=== PATIENT | female | born 1985 | race Caucasian/White ===

== ENCOUNTER 2017-10-05 07:50 | Emergency (ER) | payer OTHER, MEDICAID ==
[~2017-10-05] VITALS: Ht 167.6 cm; Wt 87.0 kg
[~2017-10-05 07:50] MED LIST: BUPR100T PO; CLIN1CAP6 PO; HYDR12.56 PO; IBUP800 PO; LABE100T2 PO; NORE1TAB57 PO; SERT-129 PO
[2017-10-05 07:54] VITALS: BP 130/82; PULSE 121; RESP 18; TEMP 99.2; O2SAT 98
[2017-10-05 07:58] VITALS: PULSE 111; TEMP 99.7
[2017-10-05] MEDS ORDERED: KETOROLAC TROMETHAMINE 60 MG/2 ML (IM) VIAL IM ONE (08:15)
[2017-10-05] MEDS ORDERED: DEXAMETHASONE SOD PHOS 4 MG/ML VIAL IM ONE (08:15)
[2017-10-05] MEDS ORDERED: NORE1TAB57 PO (08:18)
[2017-10-05] MEDS ORDERED: HYDR12.57 PO (08:18)
[2017-10-05] MEDS ORDERED: LABE100T2 PO (08:18)
[2017-10-05] MEDS ORDERED: SERT-129 PO (08:18)
[2017-10-05] MEDS ORDERED: BUPR100T4 PO (08:18)
[2017-10-05] MEDS ORDERED: AZIT250T3 PO (08:55)
[2017-10-05] MEDS ORDERED: NAPR500T2 PO (08:55)
--- NOTE | 2017-10-05 08:55 | PD ---
HPI Chief Complaint: Cold / Flu Symptoms Time Seen by Provider: 08:04 Travel History International Travel<30 days: No Contact w/Intl Traveler<30days: No Traveled to known affect area: No History of Present Illness HPI This is a 32-year-old female who presents to the emergency department with 2 days of severe sore throat, constant, associated with difficulty swallowing, subjective fevers and body aches. She also has some chest discomfort with deep breaths. Her son was sick with similar symptoms but then got better. PFSH Past Medical History Anxiety: Yes Depression: Yes Diminished Hearing: No Hypertension: Yes Respiratory: Yes (PNEUMONIA IN PAST) Immunizations Current: Yes Influenza Vaccination: No ?: Not LMP: 1 WEEK AGO : 1 Para: 1 Past Surgical History Surgical History: No Previous Surgery Social History Alcohol Use: No Tobacco Use: No Substance Use: No Allergies-Medications (Allergen,Severity, Reaction): Coded Allergies: penicillin G (Unverified Allergy, Intermediate, rash, 10/05/17) amoxicillin (Unverified Allergy, Mild, RASH, 10/05/17) Reported Meds & Prescriptions Reported Meds & Active Scripts Active Reported Sertraline (Sertraline HCl) 100 Mg Tab 100 Mg PO HS Loestrin 1.5/30 (Norethindrone-Ethinyl Estradiol) 1.5-30 Mg-Mcg Tab 1 Tab PO HS Hydrochlorothiazide 12.5 Mg Cap 12.5 Mg PO HS Labetalol (Labetalol HCl) 100 Mg Tab 150 Mg PO HS Bupropion HCl 100 Mg Tab 100 Mg PO HS Review of Systems Except as stated in HPI: all other systems reviewed are Neg Physical Exam Narrative GENERAL:Well appearing, no acute distress SKIN: Focused skin assessment warm and dry. HEAD: Atraumatic. Normocephalic. EYES: Pupils equal and round. No injection or drainage. ENT: Moist mucous membranes. Diffuse posterior pharyngeal erythema with edema of the tonsils. No uvular deviation or posterior pharyngeal asymmetry. NECK: Tender anterior cervical lymphadenopathy bilaterally. CARDIOVASCULAR: Regular rate and rhythm. No murmur appreciated. RESPIRATORY: Clear to auscultation. Breath sounds equal bilaterally. GASTROINTESTINAL: Abdomen soft, non-tender, nondistended. MUSCULOSKELETAL: No obvious deformities. NEUROLOGICAL: Awake and alert. No obvious cranial nerve deficits. Moving all extremities. PSYCHIATRIC: Appropriate mood and affect; insight and judgment normal. Data Data Last Documented VS Vital Signs Date Time Temp Pulse Resp B/P (MAP) Pulse Ox O2 Delivery O2 Flow Rate FiO2 10/05/17 08:08 18 98 10/05/17 07:58 99.7 111 10/05/17 07:54 Room Air Orders Orders Group A Rapid Strep Screen (10/05/17 08:13) Ketorolac Inj (Toradol Inj) (10/05/17 08:15) Dexamethasone Inj (Decadron Inj) (10/05/17 08:15) MDM Medical Decision Making Medical Screen Exam Complete: Yes Emergency Medical Condition: Yes Differential Diagnosis Strep pharyngitis, viral pharyngitis, mononucleosis, gonococcal pharyngitis, peritonsillar abscess Narrative Course This is a 32-year-old female who presents to the emergency department with severe sore throat that's been going on for 2 days. She has no evidence of peritonsillar abscess on exam. She is well-hydrated and nontoxic appearing. She is positive for group A strep. Patient has a penicillin allergy. She'll be treated with azithromycin. She was also given a dose of Decadron and Toradol in the emergency department for symptomatic relief. Diagnosis Primary Impression: Strep pharyngitis Patient Instructions: General Instructions Additional Instructions: If you develop inability to eat or drink, worsening pain, or difficulty breathing return to the emergency department. Med/Other Pt SpecificInfo: Prescription(s) given Scripts Naproxen (Naproxen) 500 Mg Tab 500 MG PO BID Y for PAIN SCALE 4 TO 10, #20 TAB 0 Refills Prov: Halle Ann MD 10/05/17 Azithromycin (Azithromycin) 250 Mg Tab 250 MG PO DIRECTED for Infection, #6 TAB 0 Refills Take 2 tabs (500 mg) on day 1 then 1 tab daily x 4 days. Prov: Halle Ann MD 10/05/17 Disposition: 01 DISCHARGE HOME Condition: Stable Halle Ann MD Oct 05, 2017 08:55
[2017-10-05] MEDS ORDERED: ONDANSETRON ODT 4 MG TAB PO ONE (09:00)
== END 2017-10-05 09:07 | disposition home or self-care (01) ==
LOC: PHED 07:50
DX: J02.0 Streptococcal pharyngitis (principal); B95.0 Streptococcus, group A, as the cause of diseases classified elsewhere; I10 Essential (primary) hypertension
CPT/HCPCS: 87880; 96372; 99284; J1100; J1885